=== PATIENT | male | born 1995 | race Two or more races ===

== ENCOUNTER 2024-07-05 11:30 | Emergency (ER) | payer OTHER ==
[~2024-07-05] VITALS: Ht 180.3 cm; Wt 86.2 kg
[2024-07-05 15:42] LABS: HEMATOCRIT 45.4 % (39.0-48.0); HEMOGLOBIN 15.3 g/dL (13-16.00); MEAN CORPUSCULAR HEMOGLOBIN 29.3 pg (27.00-32.0); MEAN CORPUSCULAR HGB CONC 33.7 g/dl (32.0-36.0); PLATELET COUNT 295 K/uL (150-450); RED BLOOD COUNT 5.22 M/uL (4.00-6.00)
[2024-07-05 15:52] LABS: URINE APPEARANCE Clear; URINE BILIRRUBIN Negative (NEGATIVE); URINE BLOOD Negative; URINE COLOR Yellow; URINE GLUCOSE Negative (NEGATIVE); URINE KETONE Negative (NEGATIVE); URINE LEUKOCYTE Negative; URINE NITRATE Negative; URINE PROTEIN Negative (NEGATIVE); URINE UROBILINOGEN 0.2 E.U./dl
[2024-07-05 15:52] LABS: CALCIUM 8.9 mg/dL (8.5-10.1); GFR 89.63; POTASSIUM 4.09 mEq/L (3.5-5.1)
[2024-07-05 16:05] LABS: URINE BACTERIA 2.5 uL (0.0-1933); URINE EPITHELIAL CELLS 0.3 uL (0.0-38.8); URINE RBC 1.2 uL (0.0-20.8); URINE WBC 0.3 uL (0.0-23.2)
[2024-07-05] MEDS ORDERED: 0.9 % SODIUM CHLORIDE 500 ML IV ONE (17:15)
[2024-07-05] MEDS ORDERED: FAMOtidine 10 MG/ML (4ML VIAL) IV ONE (17:15)
== END 2024-07-05 20:51 | disposition home or self-care (01) ==
LOC: ER 11:32
PROVIDERS: General Practice
DX: R00.2 Palpitations (principal); Z20.822 Contact with and (suspected) exposure to COVID-19